=== PATIENT | male | born 1980 | race Caucasian/White ===

== ENCOUNTER 2024-06-23 07:10 | Emergency (ER) | payer SELFPAY ==
[2024-06-23 07:11] VITALS: BP 117/82
[2024-06-23 07:39] VITALS: BP 117/87
[2024-06-23 07:48] VITALS: BP 117/87; BMI 21.9
[2024-06-23 08:04] LABS: % Basophils 1.4 % (0-2); % Eosinophils 3.5 % (0-6); % Immature Granulocytes 0.5 % (0-0.5); % Lymphocytes 28.5 % (20.5-51.1); % Monocytes 7.4 % (1.7-9.3); % Neutrophils 58.7 % (42.2-75.2); Absolute Basophils 0.1 10^3/uL (0-0.2); Absolute Eosinophils 0.2 10^3/uL (0-0.7); Absolute Lymphocytes 1.6 10^3/uL (1.2-3.4); Absolute Monocytes 0.4 10^3/uL (0.1-0.6); Absolute Neutrophils 3.3 10^3/uL (1.4-6.5); Hematocrit 32.7 % (39.0-52.0); Hemoglobin 11.5 g/dL (13.0-18.0); Mean Corp Hgb Conc. 35.2 g/dL (33.0-37.0); Mean Corpuscular Hgb 30.9 pg (27.0-31.0); Mean Corpuscular Volume 87.9 fL (80.0-94.0); Mean Platelet Volume 9.2 fL (7.4-10.4); Nucleated Red Blood Cells % 0 % (-); Platelet Count 314 10^3/uL (130-400); Red Blood Cell Count 3.72 10^6/uL (4.70-6.10); Red Cell Dist. Width 14.5 % (11.5-14.5); White Blood Cell Count 5.7 10^3/uL (4.8-10.8)
[2024-06-23 08:20] LABS: ALT (SGPT) 104 U/L (0-50); AST (SGOT) 321 U/L (17-59); Albumin 4.9 g/dl (3.5-5.0); Alkaline Phosphatase 40 U/L (38-126); Blood Urea Nitrogen 10 mg/dl (9-20); Calcium 9.4 mg/dl (8.4-10.2); Carbon Dioxide 33 mmol/L (22-30); Chloride 96 mmol/L (98-107); Estimated Creatinine Clearance 66 ml/min; Glucose 102 mg/dl (70-99); Potassium 4.5 mmol/L (3.5-5.1); Sodium 135 mmol/L (135-145); Total Bilirubin 0.8 mg/dl (0.2-1.3); Total Protein 7.3 g/dl (6.3-8.2); eGFR > 60.00
--- NOTE | 2024-06-23 09:12 | ED.GENMED ---
History of Present Illness
General
Chief Complaint: Back Pain
Source: patient
Exam Limitations: none
Time Seen by Provider: 06/23/24 07:18
History of Present Illness
History of Present Illness:
44-year-old male presents complaining of low back pain ongoing for several months. He thinks he may have injured at work. He works for a [employer]. He fell backwards in December landing on his lower back and has had pain since. He denies
significant leg pain. No other complaints at this time. He denies bowel or bladder dysfunction or perianal
Phy Exam
Physical Exam
Physical Exam:
General: Well-appearing male no acute respiratory distress
HEENT: Normocephalic atraumatic
Heart: Regular rate and rhythm
Lungs: Clear no wheeze
Abdomen soft nontender nondistended
Musculoskeletal exam: No significant tenderness to palpation over the lumbar spine no step-off or deformity
Skin: Hyperpigmentation noted over the entire face and neck.
Extremities: No cyanosis
Course
Orders/Labs/Results
Orders:
Orders
06/23/24 07:34
CR Lumbar Spine 2 Or 3 Views Urgent
Comment:
Reason For Exam: low back pain
06/23/24 07:40
Complete Blood Count/With Diff Urgent
Comprehensive Metabolic Panel Urgent
Abnormal Lab Results
06/23/24
07:40
RBC 3.72 L 10^6/uL
(4.70-6.10)
Hgb 11.5 L g/dL
(13.0-18.0)
Hct 32.7 L %
(39.0-52.0)
Chloride 96 L mmol/L
(98-107)
Carbon Dioxide 33 H mmol/L
(22-30)
Glucose 102 H mg/dl
(70-99)
AST 321 H U/L
(17-59)
ALT 104 H U/L
(0-50)
06/23/24 07:40
06/23/24 07:40
Vital Signs
Initial and Last Documented VS:
Initial Vital Signs
Temp Pulse Resp BP Pulse Ox
98.3 F 72 16 117/82 98
06/23/24 07:11 06/23/24 07:11 06/23/24 07:11 06/23/24 07:11 06/23/24 07:11
Last Documented Vital Signs
Temp Pulse Resp BP Pulse Ox
98.3 F 86 20 117/87 99
06/23/24 07:11 06/23/24 07:48 06/23/24 07:48 06/23/24 07:48 06/23/24 07:48
MDM/Problems Addressed
Differential Diagnosis Includes:
Labs reviewed and are positive for slightly elevated liver functions. Patient is a smoker. His CO2 is slightly high as well. No other significant finding. X-rays of the lumbar spine were reviewed personally and are negative for acute fracture.
I suspect underlying lumbar strain or mild degenerative changes. Recommended anti-inflammatories warm compresses and Lidoderm patch. Stable for discharge with follow-up
*Critical Care Note
Total Time (30-74mins, 75-104mins- exclusive of procedures): Not Applicable
ED Attending Note
-
Portions of this chart may have been created with voice recognition software.� Occasional wrong word or��sound alike� substitutions may have occurred due to the inherent limitations of voice recognition software.
Discharge Plan
Departure
Patient Disposition: Home (Routine Discharge)
Date of Disposition: 06/23/24
Time of Disposition: 09:46
Patient with high blood pressure during this ER visit?: No
Discharge Problem:
Lumbar strain
Instructions: Low Back Pain (DC)
Prescriptions:
No Action
No Current Medications
0
Referrals:
NONE,* [Family Provider] -
Activity Restrictions/Additional Instructions:
Use warm compresses to the back. Continue with ibuprofen and Lidoderm patches. Return if worse otherwise follow-up with your doctor
Interventions
Interventions:
*Risk Screen - Suicide Last Done: 06/23/24 07:11
*General Assessment Last Done: 06/23/24 07:11
*Neglect/Abuse Screening Last Done: 06/23/24 07:48
*ED- Fall Risk Assessment Last Done: 06/23/24 07:48
*ED COVID-19 Vaccine History Last Done: 06/23/24 07:11
ED-Musculoskeletal Assessment Last Done: 06/23/24 07:48
Discharge Date and Time
Print Language: S[place]
--- NOTE | 2024-06-23 09:50 | EDRN ---
Balbir MCCLENDON currently at the pts bedside
[2024-06-23 09:51] VITALS: BP 126/71
== END 2024-06-23 10:07 | disposition home or self-care (01) ==
LOC: EMR 07:10
PROVIDERS: Physician Assistant; EMERGENCY PHYSICIAN Student in an Organized Health Care Education/Training Program
DX: S39.012A Strain of muscle, fascia and tendon of lower back, initial encounter (principal); W19.XXXA Unspecified fall, initial encounter; Y99.0 Civilian activity done for income or pay
CPT/HCPCS: 99284; 72100; 80053; 85025